=== PATIENT | female | born 1990 | race Two or more races ===

== ENCOUNTER 2023-03-18 20:35 | Emergency (ER) | payer OTHER ==
[2023-03-18] MEDS ORDERED: ONDANSETRON 4 MG/2 ML VIAL IVPB ONE (20:57)
[2023-03-18] MEDS ORDERED: SODIUM CHLORIDE 1,000 ML IV ONE ×2 (20:57→21:12)
[2023-03-18] MEDS ORDERED: ACETAMINOPHEN 1000 MG/100 ML BAG IVPB ONE (21:11)
[2023-03-18] MEDS ORDERED: MECLIZINE HCL 25 MG TABLET (FP) PO ONE (21:11)
[2023-03-18] MEDS ORDERED: HYOSCYAMINE SULFATE 0.125 MG *ODT PO ONE (21:12)
[2023-03-18 21:13] VITALS: BP 120/78; PULSE 90; RESP 18; TEMP 98.8; BMI 18.8
[2023-03-18] MEDS ORDERED: FAMOTIDINE 20 MG/50 ML IVPB 20 MG/50 ML MG IVPB ONE ×2 (21:13→21:15)
[2023-03-18] MEDS ORDERED: ACETAMINOPHEN INJECTION 100 ML IVPB ONE (21:15)
[2023-03-18] MEDS ORDERED: MECLIZINE HCL 25 MG TABLET (FP) ONE (21:15)
[2023-03-18] MEDS ORDERED: ONDANSETRON 4 MG/2 ML VIAL ONE (21:15)
[2023-03-18 21:18] LABS: HEMATOCRIT 41.3 % (32.4-45.2); HEMOGLOBIN 14.3 G/dL (10.7-15.3); MCH 30.4 pg (25.7-33.7); MCHC 34.6 g/dl (32.0-36.0); MEAN CELL VOLUME 88.1 fl (80-96); MEAN PLT VOLUME 8.1 fl (7.5-11.1); PLATELET COUNT 268.6 10^3/uL (134-434); RBC 4.69 10^6/uL (3.60-5.2); RDW 13.6 % (11.6-15.6); WHITE BLOOD COUNT 10.6 10^3/uL (4.0-10.8)
[2023-03-18 21:52] LABS: POTASSIUM 3.7 mmol/L (3.5-5.1)
[2023-03-18 21:54] LABS: CALCIUM 8.9 mg/dL (8.5-10.1)
[2023-03-18 21:55] LABS: BLOOD UREA NITROGEN 14.7 mg/dL (7-18)
[2023-03-18 21:57] LABS: MAGNESIUM 2.1 mg/dL (1.8-2.4)
[2023-03-18 21:58] LABS: CREATININE 0.6 mg/dL (0.55-1.3)
[2023-03-18 21:59] LABS: TOT PROT 7.2 g/dl (6.4-8.2)
[2023-03-18 22:00] LABS: BILIRUBIN,TOTAL 0.5 mg/dL (0.2-1); PHOSPHOROUS 3.1 mg/dL (2.5-4.9)
[2023-03-18 22:22] LABS: HCG,QUALITATIVE URINE Negative
== END 2023-03-18 23:01 | disposition home or self-care (01) ==
LOC: FER 20:35
PROC: 3E033GC Introduction of Other Therapeutic Substance into Peripheral Vein, Percutaneous Approach (ICD-10-PCS; principal; 2023-03-18)
PROC: 3E033NZ Introduction of Analgesics, Hypnotics, Sedatives into Peripheral Vein, Percutaneous Approach (ICD-10-PCS; 2023-03-18)
PROC: 3E033GC Introduction of Other Therapeutic Substance into Peripheral Vein, Percutaneous Approach (ICD-10-PCS; 2023-03-18)
PROC: 3E0337Z Introduction of Electrolytic and Water Balance Substance into Peripheral Vein, Percutaneous Approach (ICD-10-PCS; 2023-03-18)
DX: R11.2 Nausea with vomiting, unspecified (principal); R10.9 Unspecified abdominal pain; R51.9 Headache, unspecified; R42 Dizziness and giddiness
CPT/HCPCS: 36415; 80053; 81003; 83735; 84100; 84703; 85027; 99284-25